=== PATIENT | female | born 1995 | race Caucasian/White ===

== ENCOUNTER 2022-07-17 21:40 | Inpatient (IN) | payer BC, OTHER ==
[2022-07-17] MEDS ORDERED: ELECTROLYTE-148 SOLN 500 ML IV ONE (22:30)
[2022-07-17 22:41] VITALS: BMI 26.4
[2022-07-17] MEDS ORDERED: ELECTROLYTE-148 SOLN 500 ML IV SCH (23:00)
[2022-07-17 23:06] LABS: BASO % 0.4 % (0-2.0); EOS % 0.5 % (0-4.5); HEMATOCRIT 33.8 % (32.4-45.2); HEMOGLOBIN 11.1 GM/dL (10.7-15.3); LYMPH % 12.6 % (8-40); MCH 25.8 pg (25.7-33.7); MCHC 32.7 g/dl (32.0-36.0); MEAN CELL VOLUME 78.8 fl (80-96); MEAN PLT VOLUME 9.7 fl (7.5-11.1); NEUT % 79.5 % (42.8-82.8); PLATELET COUNT 207 10^3/uL (134-434); RBC 4.28 M/mm3 (3.60-5.2); RDW 14.6 % (11.6-15.6); WHITE BLOOD COUNT 15.3 K/mm3 (4.0-10.0)
[2022-07-17 23:12] LABS: INR 0.92 (0.83-1.09); PROTHROMBIN TIME (PATIENT) 10.7 SEC (9.7-13.0)
[2022-07-17 23:15] LABS: ACTIVATED PTT 28.5 SECONDS (25.2-36.5)
[2022-07-17] MEDS ORDERED: FENTANYL/BUPIVACAINE/NS/PF - PCEA - 50 ML DISP.SYRIN EP ONE (23:18)
[2022-07-17] MEDS ORDERED: NALOXONE HCL 0.4 MG/ML VIAL IVPUSH PRN (23:32)
[2022-07-17 23:36] LABS: CALCIUM 8.6 mg/dL (8.5-10.1)
[2022-07-17 23:37] LABS: BLOOD UREA NITROGEN 11.7 mg/dL (7-18)
[2022-07-17] MEDS ORDERED: FENTANYL CITRATE/PF 50 MCG/ML VIAL ONE (23:38)
[2022-07-17 23:40] LABS: CREATININE 0.6 mg/dL (0.55-1.3)
[2022-07-17] MEDS: FENTANYL/BUPIVACAINE/NS/PF - PCEA - 50 ML DISP.SYRIN EP SCH (23:50)
[2022-07-18] MEDS: ELECTROLYTE-148 SOLN 1,000 ML IV SCH ×2 (02:00→05:40)
[2022-07-18] MEDS ORDERED: FENTANYL/BUPIVACAINE/NS/PF - PCEA - 50 ML DISP.SYRIN EP ONE (03:14)
[2022-07-18] MEDS: FENTANYL/BUPIVACAINE/NS/PF - PCEA - 50 ML DISP.SYRIN EP SCH (03:15)
[2022-07-18] MEDS ORDERED: OXYTOCIN 20 UNITS in 0.9% NS 20 UNIT/1,000 ML INFUS.BAG IV ONE (07:59)
[2022-07-18] MEDS ORDERED: WITCH HAZEL 50% (TUCKS) 40 PAD/JAR PAD TP PRN (10:39)
[2022-07-18] MEDS ORDERED: BISACODYL 10 MG SUPP.RECT RC PRN (10:39)
[2022-07-18] MEDS ORDERED: oxyCODONE HCL 5 MG TABLET PO PRN (10:39)
[2022-07-18] MEDS ORDERED: METHYLERGONOVINE MALEATE 0.2 MG/1 ML AMP IM PRN (10:39)
[2022-07-18] MEDS ORDERED: ACETAMINOPHEN 325 MG TABLET (FP) PO PRN (10:39)
[2022-07-18] MEDS ORDERED: BENZOCAINE 28 GM HEMORRHOIDAL OINTMENT TP PRN (10:39)
[2022-07-18] MEDS ORDERED: BENZOCAINE 20% 57 GM BOTTLE TP PRN (10:39)
[2022-07-18] MEDS ORDERED: OXYTOCIN 20 UNITS in 0.9% NS 20 UNIT/1,000 ML INFUS.BAG IV SCH (10:45)
[2022-07-18] MEDS: IBUPROFEN 600 MG TABLET (FP) PO PRN ×3 (10:57→22:00)
[2022-07-18 12:53] LABS: POC NITRAZINE POS
[2022-07-19] MEDS: IBUPROFEN 600 MG TABLET (FP) PO PRN ×4 (04:12→22:02)
[2022-07-19 07:54] LABS: BASO % 0.2 % (0-2.0); EOS % 1.1 % (0-4.5); HEMATOCRIT 28.9 % (32.4-45.2); HEMOGLOBIN 9.8 GM/dL (10.7-15.3); LYMPH % 11.4 % (8-40); MCH 26.6 pg (25.7-33.7); MCHC 33.8 g/dl (32.0-36.0); MEAN CELL VOLUME 78.7 fl (80-96); MEAN PLT VOLUME 10.7 fl (7.5-11.1); MONO % 6.4 % (3.8-10.2); NEUT % 80.9 % (42.8-82.8); PLATELET COUNT 183 10^3/uL (134-434); RBC 3.67 M/mm3 (3.60-5.2); RDW 14.5 % (11.6-15.6)
[2022-07-19] MEDS: PRENATAL VITAMINS W/ FOLIC ACID TABLET (FP) PO SCH (10:59)
[2022-07-19] MEDS ORDERED: SENNOSIDES/DOCUSATE COMBO (SENNA PLUS) TABLET (UD) PO PRN (22:00)
[2022-07-19 23:19] VITALS: TEMP 97.6
[2022-07-20] MEDS: IBUPROFEN 600 MG TABLET (FP) PO PRN ×2 (01:35→10:07)
[2022-07-20] MEDS: PRENATAL VITAMINS W/ FOLIC ACID TABLET (FP) PO SCH (10:06)
[2022-07-20 10:59] VITALS: BP 107/71; PULSE 92; RESP 17
== END 2022-07-20 13:40 | disposition home or self-care (01) | DRG 807 ==
LOC: JLDR 21:40 → J3W 07-18 11:30
PROVIDERS: ADMIT Obstetrics & Gynecology; ATTEND Obstetrics & Gynecology
PROC: 10E0XZZ Delivery of Products of Conception, External Approach (ICD-10-PCS; principal; 2022-07-18)
PROC: 0HQ9XZZ Repair Perineum Skin, External Approach (ICD-10-PCS; 2022-07-18)
PROC: 0W8NXZZ Division of Female Perineum, External Approach (ICD-10-PCS; 2022-07-18)
DX: O70.0 First degree perineal laceration during delivery (principal); Z3A.38 38 weeks gestation of pregnancy; Z37.0 Single live birth
CPT/HCPCS: 36415; 80048; 83986-QW; 85025; 85610; 85730; 86780; 86850; 86900; 86901; C9803-CS; U0003; U0005

== ENCOUNTER 2024-04-24 20:30 | Inpatient (IN) | payer BC ==
[2024-04-24] MEDS: ELECTROLYTE-148 SOLN 1,000 ML IV SCH (21:30)
[2024-04-24] MEDS ORDERED: FENTANYL/BUPIVACAINE/NS/PF - PCEA - 50 ML DISP.SYRIN EP ONE (22:01)
[2024-04-24 22:03] LABS: BASO % 0.3 % (0-2.0); EOS % 1.1 % (0-4.5); HEMATOCRIT 37.8 % (32.4-45.2); LYMPH % 22.5 % (8-40); MCH 26.3 pg (25.7-33.7); MCHC 31.7 g/dl (32.0-36.0); MEAN CELL VOLUME 83.2 fl (80-96); MEAN PLT VOLUME 10.2 fl (7.5-11.1); MONO % 7.9 % (3.8-10.2); NEUT % 68.2 % (42.8-82.8); PLATELET COUNT 209 10^3/uL (134-434); RBC 4.55 M/mm3 (3.60-5.2); RDW 14.8 % (11.6-15.6); WHITE BLOOD COUNT 11.4 K/mm3 (4.0-10.0)
[2024-04-24] MEDS ORDERED: BUPIVACAINE HCL/PF 0.25% (2.5MG/ML) 10 ML VIAL ONE (22:07)
[2024-04-24 22:09] LABS: INR 0.87 (0.83-1.09)
[2024-04-24 22:12] LABS: ACTIVATED PTT 28.4 SECONDS (25.2-36.5)
[2024-04-24] MEDS: FENTANYL/BUPIVACAINE/NS/PF - PCEA - 50 ML DISP.SYRIN EP SCH (22:13)
[2024-04-24] MEDS ORDERED: NALOXONE HCL 0.4 MG/ML VIAL IVPUSH PRN (22:25)
[2024-04-24 22:28] LABS: POTASSIUM 3.8 mmol/L (3.5-5.1)
[2024-04-24 22:29] LABS: CALCIUM 8.9 mg/dL (8.5-10.1)
[2024-04-24 22:30] LABS: BLOOD UREA NITROGEN 12.5 mg/dL (7-18)
[2024-04-24] MEDS ORDERED: LIDOCAINE HCL 1% PRESERVATIVE FREE - 30ML VIAL ONE (22:30)
[2024-04-24] MEDS ORDERED: OXYTOCIN 20 UNITS in 0.9% NS 20 UNIT/1,000 ML INFUS.BAG IV ONE (22:30)
[2024-04-24 22:33] LABS: CREATININE 0.7 mg/dL (0.55-1.3)
[2024-04-24 23:05] VITALS: BMI 27.4
[2024-04-24] MEDS: OXYTOCIN 20 UNITS in 0.9% NS 20 UNIT/1,000 ML INFUS.BAG IV SCH (23:53)
[2024-04-25] MEDS ORDERED: BENZOCAINE 20% 57 GM BOTTLE TP PRN (00:02)
[2024-04-25] MEDS ORDERED: METHYLERGONOVINE MALEATE 0.2 MG/1 ML AMP IM PRN (00:02)
[2024-04-25] MEDS ORDERED: BISACODYL 10 MG SUPP.RECT RC PRN (00:02)
[2024-04-25] MEDS ORDERED: WITCH HAZEL 50% (TUCKS) 40 PAD/JAR PAD TP PRN (00:02)
[2024-04-25] MEDS ORDERED: BENZOCAINE 28 GM HEMORRHOIDAL OINTMENT TP PRN (00:02)
[2024-04-25] MEDS ORDERED: oxyCODONE HCL 5 MG TABLET PO PRN (00:02)
[2024-04-25 00:20] LABS: CORD BASE EXCESS -1.8 mmol/L (0-2); CORD HCO3 24.9 mmHg (20-29); CORD PCO2 49.3 mmHg (30-78); CORD pH 7.322 (7.14-7.44)
[2024-04-25 00:22] LABS: CORD BASE EXCESS -3.9 mmol/L (0-2); CORD HCO3 24.6 mmHg (20-29); CORD pH 7.246 (7.14-7.44)
[2024-04-25] MEDS: ACETAMINOPHEN 325 MG TABLET (FP) PO PRN (05:45)
[2024-04-25] MEDS: PRENATAL VITAMINS W/ FOLIC ACID TABLET (FP) PO SCH (09:18)
[2024-04-25] MEDS: IBUPROFEN 600 MG TABLET (FP) PO PRN (09:22)
[2024-04-25 20:25] VITALS: TEMP 98.1
[2024-04-26 07:39] LABS: BASO % 0.7 % (0-2.0); EOS % 2.4 % (0-4.5); HEMATOCRIT 35.9 % (32.4-45.2); HEMOGLOBIN 11.6 GM/dL (10.7-15.3); MCH 26.9 pg (25.7-33.7); MCHC 32.4 g/dl (32.0-36.0); MEAN CELL VOLUME 83.2 fl (80-96); MEAN PLT VOLUME 10.1 fl (7.5-11.1); MONO % 7.1 % (3.8-10.2); NEUT % 64.8 % (42.8-82.8); PLATELET COUNT 186 10^3/uL (134-434); RBC 4.31 M/mm3 (3.60-5.2); RDW 14.2 % (11.6-15.6); WHITE BLOOD COUNT 9.9 K/mm3 (4.0-10.0)
[2024-04-26 11:59] VITALS: BP 111/76; PULSE 91; RESP 18
[2024-04-26] MEDS ORDERED: SENNOSIDES/DOCUSATE COMBO (SENNA PLUS) TABLET (UD) PO PRN (22:00)
== END 2024-04-26 11:53 | disposition home or self-care (01) | DRG 807 ==
LOC: JDEL 20:30 → UNDOADMIN 21:32 → JLDR 21:32 → J3W 04-25 02:55
PROVIDERS: ADMIT Obstetrics & Gynecology; ATTEND Obstetrics & Gynecology
PROC: 0HQ9XZZ Repair Perineum Skin, External Approach (ICD-10-PCS; principal; 2024-04-24)
PROC: 10E0XZZ Delivery of Products of Conception, External Approach (ICD-10-PCS; 2024-04-24)
DX: O70.0 First degree perineal laceration during delivery (principal); Z37.0 Single live birth; Z3A.39 39 weeks gestation of pregnancy
CPT/HCPCS: 36415; 36600; 59025; 59409; 80048; 82803; 85025; 85610; 85730; 86780; 86850; 86900; 86901; 87340; 88307-TC